=== PATIENT | male | born 1970 | race Caucasian/White ===

== ENCOUNTER 2018-06-04 00:14 | Emergency (ER) | payer BC ==
--- NOTE | 2018-06-04 00:51 | ERPHSYRPT ---
- History of Present Illness Time Seen by Provider: 06/04/18 00:30 Source: patient, family Exam Limitations: no limitations Patient Subjective Stated Complaint: Suicidal ideation Triage Nursing Assessment: Patient ambulated back to ED and transferred self to bed. Patient A+O X 3. Patient complains of suicidal thoughts since noon today after receiving life changing event that is a personal family matter. Patient crying. Patient states he would be better off . Patient denies having a plan to commit suicide, but family had hidden firearms. Patient's lungs clear a/ p salvador. Patient denies pain or discomfort. Physician History: 48 y/o white male presents with suicidal ideation and expression of he would be better off . pt in the midst of legal issues. pts sig other gave pt one xanax of hers because he was shaking badly. pt denies a specific plan but family took away all his meds and home guns because of their concern. pt took his usual pm medications last pm. Timing/Duration: today Severity of Symptoms-Max: moderate Severity of Symptoms-Current: moderate Context related to: legal problems Suicidal thoughts: other (expressed) Associated Symptoms: anxiety, depressed, suicidal ideation Previous symptoms: no prior history Allergies/Adverse Reactions: hydrocodone Allergy (Verified 06/04/18 00:44) Home Medications: Duloxetine HCl 1 tab PO DAILY 06/04/18 [History] Ergocalciferol (Vitamin D2) [Vitamin D2] 1 tab PO WEEKLY 06/04/18 [History] Gabapentin 300 mg PO TID 06/04/18 [History] Levothyroxine Sodium 1 tab PO DAILY 06/04/18 [History] Naproxen 500 mg [Naprosyn 500 MG] 500 mg PO BID 06/04/18 [History] Hx Influenza Vaccination/Date Given: No Immunizations Up to Date: Yes - Past Medical History Pertinent Past Medical History: Yes Neurological History: No Pertinent History ENT History: No Pertinent History Cardiac History: High Cholesterol Respiratory History: No Pertinent History Endocrine Medical History: No Pertinent History Musculoskeletal History: Fibromyalgia GI Medical History: No Pertinent History History: No Pertinent History Psycho-Social History: No Pertinent History Male Reproductive Disorders: No Pertinent History - Past Surgical History Past Surgical History: Yes Neuro Surgical History: No Pertinent History Cardiac: No Pertinent History Respiratory: No Pertinent History Gastrointestinal: Hernia Repair Genitourinary: No Pertinent History Musculoskeletal: No Pertinent History Male Surgical History: No Pertinent History - Social History Smoking Status: Current every day smoker How long have you smoked: 6 months Exposure to second hand smoke: Yes Drug Use: none Patient Lives Alone: No - Review of Systems Constitutional: No Symptoms Eyes: No Symptoms Ears, Nose, & Throat: No Symptoms Respiratory: No Symptoms Cardiac: No Symptoms Abdominal/Gastrointestinal: No Symptoms Genitourinary Symptoms: No Symptoms Musculoskeletal: No Symptoms Skin: No Symptoms Neurological: No Symptoms Psychological: Anxiety, Depression, Suicidal Ideations, Emotional Lability Endocrine: No Symptoms Hematologic/Lymphatic: No Symptoms Immunological/Allergic: No Symptoms All Other Systems: Reviewed and Negative - Nursing Vital Signs Nursing Vital Signs: Initial Vital Signs Pulse Rate 93 H 06/04/18 00:28 Respiratory Rate 18 06/04/18 00:28 Blood Pressure 133/85 06/04/18 00:28 O2 Sat by Pulse Oximetry 98 06/04/18 00:28 Pain Scale Pain Intensity 0 - Physical Exam General Appearance: mild distress, alert, anxiety Eyes, Ears, Nose, Throat Exam: normal ENT inspection, moist mucous membranes Neck Exam: normal inspection, non-tender, supple, full range of motion Respiratory Exam: normal breath sounds, lungs clear, airway intact, No chest tenderness, No respiratory distress Cardiovascular Exam: regular rate/rhythm, normal heart sounds, normal peripheral pulses Gastrointestinal/Abdominal Exam: soft, normal bowel sounds, No tenderness Current Suicidality: denies suicide plan Neurological Exam: alert, oriented x 3, anxious Appearance: appropriate appearance Behavior/Eye Contact/Speech: alert & cooperative, normal speech, avoids eye contact Thoughts/Hallucinations: normal thought pattern Skin Exam: normal color, warm, dry SpO2 Interpretation: normal SpO2: 98 O2 Delivery: Room Air - Course Nursing assessment & vital signs reviewed: Yes EKG Interpreted by Me: RATE (91), Sinus Rhythm, NORMAL AXIS, Non-specific ST Changes, Other (no comparison) Ordered Tests: Active Orders 24 hr Category Date Time Status Hand Stonecutter STAT Care 06/04/18 00:55 Active EKG-ER Only STAT Care 06/04/18 00:52 Active IV Insertion STAT Care 06/04/18 00:52 Active Psychiatric Consult STAT Cons 06/04/18 00:54 Active ACETAMINOPHEN Stat Lab 06/04/18 00:52 Completed CBC W DIFF Stat Lab 06/04/18 00:52 Completed CMP Stat Lab 06/04/18 00:52 Completed ETHYL ALCOHOL Stat Lab 06/04/18 00:52 Completed SALICYLATE Stat Lab 06/04/18 00:52 Completed UA W/RFX UR CULTURE Stat Lab 06/04/18 01:10 Completed Urine Triage Profile Stat Lab 06/04/18 01:10 Completed Lab/Rad Data: Laboratory Result Diagrams 06/04/18 00:52 06/04/18 00:52 Laboratory Results 06/04/18 06/04/18 06/04/18 Range/Units 01:10 01:10 00:52 WBC (4.0-10.5) K/mm3 RBC (4.1-5.6) M/mm3 Hgb (12.5-18.0) gm/dl Hct (42-50) % MCV (78-100) fl MCH (26-32) pg MCHC (32-36) g/dl RDW (11.5-14.0) % Plt Count (150-450) K/mm3 MPV (6-9.5) fl Gran % (36.0-66.0) % Eos # (Auto) (0-0.5) Absolute Lymphs (auto) (1.0-4.6) Absolute Monos (auto) (0.0-1.3) Lymphocytes % (24.0-44.0) % Monocytes % (0.0-12.0) % Eosinophils % (0.00-5.0) % Basophils % (0.0-0.4) % Absolute Granulocytes (1.4-6.9) Basophils # (0-0.4) Sodium 139 (137-145) mmol/L Potassium 3.8 (3.5-5.1) mmol/L Chloride 101 (98-107) mmol/L Carbon Dioxide 29 (22-30) mmol/L Anion Gap 13.0 (5-15) MEQ/L BUN 15 (9-20) mg/dL Creatinine 1.40 H (0.66-1.25) mg/dL Estimated GFR 57.0 ML/MIN Glucose 97 (74-106) mg/dL Calcium 9.6 (8.4-10.2) mg/dL Total Bilirubin 0.80 (0.2-1.3) mg/dL AST 17 (17-59) U/L ALT 16 (0-50) U/L Alkaline Phosphatase 71 (38-126) U/L Serum Total Protein 7.3 (6.3-8.2) g/dL Albumin 4.3 (3.5-5.0) g/dL Urine Color YELLOW (YELLOW) Urine Appearance CLEAR (CLEAR) Urine pH 5.0 (5-6) Ur Specific [place] 1.016 (1.005-1.025) Urine Protein NEGATIVE (Negative) Urine Ketones NEGATIVE (NEGATIVE) Urine Blood NEGATIVE (0-5) Martin/ul Urine Nitrite NEGATIVE (NEGATIVE) Urine Bilirubin NEGATIVE (NEGATIVE) Urine Urobilinogen NEGATIVE (0-1) mg/dL Ur Leukocyte Esterase NEGATIVE (NEGATIVE) Urine WBC (Auto) NONE (0-5) /HPF Urine RBC (Auto) NONE (0-2) /HPF U Epithel Cells (Auto) NONE (FEW) /HPF Urine Bacteria (Auto) NONE (NEGATIVE) /HPF Urine Mucus (Auto) SLIGHT (NEGATIVE) /HPF Urine Culture Reflexed NO (NO) Urine Glucose NEGATIVE (NEGATIVE) mg/dL Salicylates < 1.0 L (2-20) mg/dL Urine Opiates Level NEGATIVE (NEGATIVE) Ur Methadone NEGATIVE (NEGATIVE) Acetaminophen < 10 L (10-30) ug/ml Urine Barbiturates NEGATIVE (NEGATIVE) Ur Phencyclidine (PCP) NEGATIVE (NEGATIVE) Urine Amphetamine NEGATIVE (NEGATIVE) U Benzodiazepine Level POSITIVE (NEGATIVE) Urine Cocaine NEGATIVE (NEGATIVE) Urine Marijuana (THC) NEGATIVE (NEGATIVE) Ethyl Alcohol < 10 (0-10) mg/dL 06/04/18 Range/Units 00:52 WBC 10.6 H (4.0-10.5) K/mm3 RBC 5.43 (4.1-5.6) M/mm3 Hgb 15.6 (12.5-18.0) gm/dl Hct 46.0 (42-50) % MCV 84.7 (78-100) fl MCH 28.7 (26-32) pg MCHC 33.9 (32-36) g/dl RDW 13.9 (11.5-14.0) % Plt Count 222 (150-450) K/mm3 MPV 10.4 H (6-9.5) fl Gran % 68.3 H (36.0-66.0) % Eos # (Auto) 0.18 (0-0.5) Absolute Lymphs (auto) 2.45 (1.0-4.6) Absolute Monos (auto) 0.67 (0.0-1.3) Lymphocytes % 23.2 L (24.0-44.0) % Monocytes % 6.3 (0.0-12.0) % Eosinophils % 1.7 (0.00-5.0) % Basophils % 0.5 (0.0-0.4) % Absolute Granulocytes 7.22 H (1.4-6.9) Basophils # 0.05 (0-0.4) Sodium (137-145) mmol/L Potassium (3.5-5.1) mmol/L Chloride (98-107) mmol/L Carbon Dioxide (22-30) mmol/L Anion Gap (5-15) MEQ/L BUN (9-20) mg/dL Creatinine (0.66-1.25) mg/dL Estimated GFR ML/MIN Glucose (74-106) mg/dL Calcium (8.4-10.2) mg/dL Total Bilirubin (0.2-1.3) mg/dL AST (17-59) U/L ALT (0-50) U/L Alkaline Phosphatase (38-126) U/L Serum Total Protein (6.3-8.2) g/dL Albumin (3.5-5.0) g/dL Urine Color (YELLOW) Urine Appearance (CLEAR) Urine pH (5-6) Ur Specific [place] (1.005-1.025) Urine Protein (Negative) Urine Ketones (NEGATIVE) Urine Blood (0-5) Martin/ul Urine Nitrite (NEGATIVE) Urine Bilirubin (NEGATIVE) Urine Urobilinogen (0-1) mg/dL Ur Leukocyte Esterase (NEGATIVE) Urine WBC (Auto) (0-5) /HPF Urine RBC (Auto) (0-2) /HPF U Epithel Cells (Auto) (FEW) /HPF Urine Bacteria (Auto) (NEGATIVE) /HPF Urine Mucus (Auto) (NEGATIVE) /HPF Urine Culture Reflexed (NO) Urine Glucose (NEGATIVE) mg/dL Salicylates (2-20) mg/dL Urine Opiates Level (NEGATIVE) Ur Methadone (NEGATIVE) Acetaminophen (10-30) ug/ml Urine Barbiturates (NEGATIVE) Ur Phencyclidine (PCP) (NEGATIVE) Urine Amphetamine (NEGATIVE) U Benzodiazepine Level (NEGATIVE) Urine Cocaine (NEGATIVE) Urine Marijuana (THC) (NEGATIVE) Ethyl Alcohol (0-10) mg/dL - Progress Progress: unchanged, re-examined Progress Note: 06/04/18 03:03 barbara higgins spoke with [facility]. dr. gill accepts pt in transfer for admission Counseled pt/family regarding: lab results, diagnosis, need for follow-up, rad results - Departure Departure Disposition: Transfer Clinical Impression: Suicidal ideation Condition: Stable Critical Care Time: No Referrals: CALVIN FRAGOSO [Primary Care Provider] -
[2018-06-04 01:04] LABS: BASOPHIL % 0.5 % (0.0-0.4); Basophil (Absolute #) 0.05 (0-0.4); Eosinophil % 1.7 % (0.00-5.0); Eosinophil (Absolute #) 0.18 (0-0.5); Granulocyte Absolute (ANC) 7.22 (1.4-6.9); Granulocytes % 68.3 % (36.0-66.0); Hemoglobin 15.6 gm/dl (12.5-18.0); Lymphocyte (Absolute #) 2.45 (1.0-4.6); Lymphocytes % 23.2 % (24.0-44.0); Mean Cell Volume 84.7 fl (78-100); Mean Corpuscular Hemoglobin 28.7 pg (26-32); Mean Corpuscular Hgb Concent. 33.9 g/dl (32-36); Mean Platelet Volume 10.4 fl (6-9.5); Monocyte (Absolute #) 0.67 (0.0-1.3); Monocytes % 6.3 % (0.0-12.0); Platelet Count 222 K/mm3 (150-450); Red Blood Count 5.43 M/mm3 (4.1-5.6); Red Cell Distribution Width 13.9 % (11.5-14.0); White Blood Count 10.6 K/mm3 (4.0-10.5)
[2018-06-04 01:17] LABS: ALBUMIN 4.3 g/dL (3.5-5.0); ALKALINE PHOSPHATASE 71 U/L (38-126); BLOOD UREA NITROGEN 15 mg/dL (9-20); CHLORIDE 101 mmol/L (98-107); Calcium 9.6 mg/dL (8.4-10.2); Carbon Dioxide 29 mmol/L (22-30); Glucose 97 mg/dL (74-106); Potassium 3.8 mmol/L (3.5-5.1); SGOT/AST 17 U/L (17-59); SGPT/ALT 16 U/L (0-50); SODIUM 139 mmol/L (137-145); Total Protein 7.3 g/dL (6.3-8.2)
[2018-06-04 01:18] LABS: ACETAMINOPHEN < 10 ug/ml (10-30); ETHYL ALCOHOL < 10 mg/dL (0-10); SALICYLATE < 1.0 mg/dL (2-20)
[2018-06-04 01:21] LABS: Appearance CLEAR (CLEAR); Bilirubin NEGATIVE (NEGATIVE); Blood NEGATIVE Ery/ul (0-5); Glucose NEGATIVE (NEGATIVE); Ketones NEGATIVE (NEGATIVE); Leukocyte Esterase NEGATIVE (NEGATIVE); Mucus SLIGHT /HPF (NEGATIVE); Nitrite NEGATIVE (NEGATIVE); Protein,Urine Dip NEGATIVE (Negative); Specific Gravity 1.016 (1.005-1.025); Urobilinogen NEGATIVE mg/dL (0-1)
[2018-06-04 01:36] LABS: Amphetamine,Urine NEGATIVE (NEGATIVE); Barbiturate,Urine NEGATIVE (NEGATIVE); Benzodiazepine,Urine POSITIVE (NEGATIVE); Cocaine,Urine NEGATIVE (NEGATIVE); Methadone,Urine NEGATIVE (NEGATIVE); Opiate,Urine NEGATIVE (NEGATIVE); PCP,Urine NEGATIVE (NEGATIVE); THC,Urine NEGATIVE (NEGATIVE)
[2018-06-04 03:03] VITALS: BP 98/69; PULSE 79
[2018-06-04 03:04] VITALS: O2SAT 98
== END 2018-06-04 03:10 | disposition short-term general hospital (02) ==
LOC: ED 00:14
DX: R45.851 Suicidal ideations (principal)
CPT/HCPCS: 36000; 36415; 80053; 80307; 81001; 85025; 90791; 93005; 93041; 99285; G0481; Q3014; G0480

== ENCOUNTER 2019-03-22 05:45 | Day surgery (SDC) | payer BC ==
[2019-03-22] MEDS ORDERED: Lactated Ringers 1,000 ML IV SCH (06:30)
[2019-03-22] MEDS ORDERED: DIPRIVAN 200 MG/20 ML IV ONE ×2 (07:20→07:33)
[2019-03-22] MEDS ORDERED: Ketamine HCl 50 MG/ML ONE (07:20)
[2019-03-22 08:29] VITALS: O2SAT 98
[2019-03-22 08:53] VITALS: BP 105/58; PULSE 72
--- NOTE | 2019-03-22 12:22 | OP ---
SURGERY DATE/TIME: 03/22/2019 0723 PREOPERATIVE DIAGNOSIS: Screening exam. POSTOPERATIVE DIAGNOSIS: Normal colon, hemorrhoids are present. PROCEDURE: Colonoscopy. SURGEON: Dr. Mcneil. ANESTHESIA: MAC. Medications given by anesthesia department. HISTORY: The patient is a 49 year-old white male presenting now for his first screening colonoscopy. He was apprised of the risks of the procedure including the risk of perforation, phlebitis, untoward reaction to medication, bleeding and missed lesions. The patient verbalized his understanding and desired to have the procedure performed. DESCRIPTION OF PROCEDURE: The patient was given the medications by the anesthesia department. He had continuous pulse oximetry, ECG monitoring, intermittent blood pressure monitoring and tidal CO2 monitoring during the examination. He was placed in the left lateral decubitus position. A digital rectal examination was performed and revealed normal anal sphincter tone, no masses and normal prostate. The flexible Olympus pediatric colonoscope was used to intubate the rectum. On initial evaluation with the insertion of the scope was noted streaks of blood in the rectum which is felt to be likely due to the digital exam. The investigation of the colon otherwise sequentially to the cecum with insertion and withdrawal, including a retroflex view in the rectum revealed no other mucosal lesions. The scope was removed from the patient who tolerated the procedure well and was sent back to OP recovery in good condition. The prep was noted to be fair to good.
== END 2019-03-22 08:56 | disposition home or self-care (01) ==
LOC: SDC 05:45
PROVIDERS: ATTEND Family Medicine
DX: Z12.11 Encounter for screening for malignant neoplasm of colon (principal); K64.9 Unspecified hemorrhoids
CPT/HCPCS: J2704

== ENCOUNTER 2024-03-23 15:07 | Day surgery (SDC) | payer OTHER ==
[2024-03-23] MEDS ORDERED: Lactated Ringers 500 ML IV ONE (15:12)
[2024-03-23] MEDS ORDERED: propofoL IV ONE (16:30)
--- NOTE | 2024-03-23 19:00 | XRAY ---
Indication: Left C2-C4 MBB. Intraoperative fluoroscopy provided for 11 seconds. 2 digital spot image submitted for interpretation demonstrates posterior needle tips projecting over expected left C2-C4 nerve roots. Correlate with intraoperative findings/report.
--- NOTE | 2024-03-24 08:56 | XRAY ---
11 seconds of fluoroscopy was used in surgery for a left C2-C4 MBB.
== END 2024-03-23 17:05 | disposition home or self-care (01) ==
LOC: SDC-PAIN 15:07
PROVIDERS: ATTEND Psychiatry & Neurology Pain Medicine
DX: M47.812 Spondylosis without myelopathy or radiculopathy, cervical region (principal)
CPT/HCPCS: 72040; 77002; J2704

== ENCOUNTER 2024-04-13 07:53 | Day surgery (SDC) | payer OTHER ==
[2024-04-13] MEDS ORDERED: BUPIVACAINE 0.5% VIAL IJ ONE (07:54)
[2024-04-13] MEDS ORDERED: Lactated Ringers 500 ML IV ONE (08:21)
[2024-04-13] MEDS ORDERED: propofoL IV ONE (09:30)
--- NOTE | 2024-04-13 10:34 | XRAY ---
Indication: Left C2-C4 MBB. Intraoperative fluoroscopy provided for 14 seconds. 2 digital spot image submitted for interpretation demonstrates posterior needle tips project over expected left C2-C4 nerve roots. Correlate with intraoperative findings/report.
--- NOTE | 2024-04-13 10:38 | XRAY ---
14 seconds of fluoroscopy was used in surgery for a left C2-C4 MBB.
== END 2024-04-13 10:01 | disposition home or self-care (01) ==
LOC: SDC-PAIN 07:53
PROVIDERS: ATTEND Psychiatry & Neurology Pain Medicine
DX: M47.812 Spondylosis without myelopathy or radiculopathy, cervical region (principal)
CPT/HCPCS: 64490; 64491; 72040; 77002; J2704

== ENCOUNTER 2024-05-04 12:01 | Day surgery (SDC) | payer OTHER ==
[2024-05-04] MEDS ORDERED: LIDOCAINE HCL 2% 100 MG/5 ML IJ ONE (12:02)
[2024-05-04] MEDS ORDERED: Lactated Ringers 500 ML IV ONE (12:20)
[2024-05-04] MEDS ORDERED: propofoL IV ONE (14:02)
--- NOTE | 2024-05-04 16:29 | XRAY ---
Indication: Right C2-C4 MBB. Intraoperative fluoroscopy provided for 13 seconds. 2 digital spot image submitted for interpretation demonstrates posterior needle tips projecting over expected right C2-C4 nerve roots. Correlate with intraoperative findings/report.
--- NOTE | 2024-05-04 17:09 | XRAY ---
13 seconds of fluoroscopy was used in surgery for a right C2-C4 MBB.
== END 2024-05-04 14:39 | disposition home or self-care (01) ==
LOC: SDC-PAIN 12:01
PROVIDERS: ATTEND Psychiatry & Neurology Pain Medicine
DX: M47.812 Spondylosis without myelopathy or radiculopathy, cervical region (principal)
CPT/HCPCS: 64490; 64491; 72040; 77002; J2704

== ENCOUNTER 2024-06-23 11:04 | Day surgery (SDC) | payer OTHER ==
[2024-06-23] MEDS ORDERED: BUPIVACAINE 0.5% VIAL IJ ONE (11:05)
[2024-06-23] MEDS ORDERED: propofoL IV ONE (13:13)
--- NOTE | 2024-06-23 14:05 | XRAY ---
Indication: Right C2-C4 MBB. Intraoperative fluoroscopy provided for 13 seconds. 2 digital spot images submitted for interpretation demonstrates posterior needle tips projecting over expected right C2-C4 nerve roots. Correlate with intraoperative findings/report.
--- NOTE | 2024-06-23 14:07 | XRAY ---
13 seconds of fluoroscopy were used in surgery for a right C2-C4 MBB.
== END 2024-06-23 13:40 | disposition home or self-care (01) ==
LOC: SDC-PAIN 11:04
PROVIDERS: ATTEND Psychiatry & Neurology Pain Medicine
DX: M47.812 Spondylosis without myelopathy or radiculopathy, cervical region (principal)
CPT/HCPCS: 64490; 64491; 72040; J2704